=== PATIENT | female | born 1975 | race Two or more races ===

== ENCOUNTER → 2022-03-23 | Outpatient (CLI) | payer BC ==
[2022-03-23 07:55] LABS: Basophils # (auto) 0 10 ^3/uL (0-0.2); Basophils % (auto) 0.4 % (0.0-2.0); Eosinophils # (auto) 0.1 10 ^3/uL (0-0.8); Eosinophils % (auto) 0.9 % (0.0-7.0); Hematocrit 39.9 % (36.0-46.0); Hemoglobin 13.3 g/dL (12.2-16.2); Lymphocytes # (auto) 1.7 10 ^3/uL (0.4-5.4); Lymphocytes % (auto) 27.3 % (10.0-50.0); Mean Corpuscular Hemoglobin 27.3 pg (28.0-32.0); Mean Corpuscular Hgb Conc. 33.2 g/dL (32.0-36.0); Monocytes # (auto) 0.3 10 ^3/uL (0-1.3); Monocytes % (auto) 4.6 % (0.0-12.0); Neutrophils # (auto) 4.2 10 ^3/uL (1.6-8.6); Neutrophils % (auto) 66.8 % (37.0-80.0); Nucleated Red Blood Cells % 0.1 %; Red Blood Cells 4.87 10^6/uL (4.0-5.20); Red Cell Distribution Width 13.2 % (11.8-14.3); White Blood Cell 6.3 10^3/uL (4.4-10.8)
[2022-03-23 08:25] LABS: Cholesterol 168 mg/dL (< 200); HDL Cholesterol 49 mg/dL (40-59); LDL Cholesterol 110 mg/dL (< 100); Triglycerides 126 mg/dL (< 150)
== END | disposition home or self-care (01) ==
LOC: LAB 07:19
PROVIDERS: ATTEND Student in an Organized Health Care Education/Training Program
DX: Z00.00 Encounter for general adult medical examination without abnormal findings (principal); R73.09 Other abnormal glucose; I10 Essential (primary) hypertension; Z86.39 Personal history of other endocrine, nutritional and metabolic disease
CPT/HCPCS: 36415; 80061; 82274; 83036; 85025

== ENCOUNTER → 2022-07-09 | Outpatient (CLI) | payer BC ==
[2022-07-09 08:27] LABS: Albumin 3.5 g/dL (3.4-5.0); Calcium 8.2 mg/dL (8.5-10.1); Potassium 4.3 mmol/L (3.5-5.1)
[2022-07-09 08:31] LABS: BUN/Creatinine Ratio 14.3; Bilirubin, Total 0.2 mg/dL (0.2-1.0); Total Protein 7.4 g/dL (6.4-8.2)
== END | disposition home or self-care (01) ==
LOC: LAB 07:40
PROVIDERS: ATTEND Student in an Organized Health Care Education/Training Program
DX: I10 Essential (primary) hypertension (principal); E66.09 Other obesity due to excess calories
CPT/HCPCS: 36415; 80053; 83036

== ENCOUNTER → 2023-02-04 | Outpatient (CLI) | payer BC ==
[2023-02-04 10:59] LABS: Basophils # (auto) 0 10 ^3/uL (0-0.2); Eosinophils # (auto) 0.1 10 ^3/uL (0-0.8); Hemoglobin 11.6 g/dL (12.2-16.2); Lymphocytes # (auto) 1.9 10 ^3/uL (0.4-5.4); Lymphocytes % (auto) 26.4 % (10.0-50.0); Monocytes # (auto) 0.4 10 ^3/uL (0-1.3)
[2023-02-04 11:02] LABS: Basophils % (auto) 0.6 % (0.0-2.0); Eosinophils % (auto) 1.1 % (0.0-7.0); Hematocrit 35.9 % (36.0-46.0); Mean Corpuscular Hemoglobin 24.1 pg (28.0-32.0); Mean Corpuscular Hgb Conc. 32.4 g/dL (32.0-36.0); Mean Corpuscular Volume 74.2 fL (80.0-100.0); Monocytes % (auto) 5.3 % (0.0-12.0); Neutrophils # (auto) 4.7 10 ^3/uL (1.6-8.6); Neutrophils % (auto) 66.6 % (37.0-80.0); Red Blood Cells 4.84 10^6/uL (4.0-5.20); Red Cell Distribution Width 14.8 % (11.8-14.3); White Blood Cell 7.1 10^3/uL (4.4-10.8)
[2023-02-04 11:33] LABS: % Iron Saturation 13.5 % (15-50); Alanine Aminotransferase 24 U/L (7-40); Albumin 4.1 g/dL (3.2-4.8); Alkaline Phosphatase 97 U/L (46-116); Anion Gap 6.5 (5-15); Aspartate Aminotransferase 16 U/L (13-40); BUN/Creatinine Ratio 10.1 (10.0-20.0); Bilirubin, Total 0.4 mg/dL (0.2-1.0); Blood Urea Nitrogen 8 mg/dL (9-23); Calcium 8.7 mg/dL (8.5-10.1); Carbon Dioxide 24.5 mmol/L (20-30); Chloride 105 mmol/L (98-107); Cholesterol 174 mg/dL (< 200); Glucose 96 mg/dL (74-106); HDL Cholesterol 44 mg/dL (40-59); Potassium 4.3 mmol/L (3.5-5.1); Sodium 136 mmol/L (136-145); Total Protein 7.3 g/dL (5.7-8.2); Triglycerides 203 mg/dL (< 150)
[2023-02-04 15:51] LABS: LDL Cholesterol 116 mg/dL (< 100)
[2023-02-04 21:09] LABS: Folate (Folic Acid) 16.72 ng/mL (>5.38)
== END | disposition home or self-care (01) ==
LOC: LAB 10:25
PROVIDERS: ATTEND Family Medicine
DX: Z00.00 Encounter for general adult medical examination without abnormal findings (principal); F32.A Depression, unspecified; Z68.32 Body mass index [BMI] 32.0-32.9, adult
CPT/HCPCS: 36415; 80053; 80061; 82607; 82746; 83036; 83540; 83550; 84403; 84443; 84550; 85025

== ENCOUNTER → 2024-01-26 | Outpatient (CLI) | payer BC ==
[2024-01-26 07:15] LABS: Urine Bacteria None Seen /hpf (None Seen)
[2024-01-26 07:20] LABS: Basophils # (auto) 0 10 ^3/uL (0-0.2); Basophils % (auto) 0.6 % (0.0-2.0); Eosinophils # (auto) 0.1 10 ^3/uL (0-0.8); Eosinophils % (auto) 1.4 % (0.0-7.0); Hematocrit 40.4 % (36.0-46.0); Hemoglobin 13.5 g/dL (12.2-16.2); Lymphocytes # (auto) 1.7 10 ^3/uL (0.4-5.4); Lymphocytes % (auto) 29.1 % (10.0-50.0); Mean Corpuscular Hemoglobin 25.8 pg (28.0-32.0); Mean Corpuscular Hgb Conc. 33.3 g/dL (32.0-36.0); Mean Corpuscular Volume 77.5 fL (80.0-100.0); Monocytes # (auto) 0.3 10 ^3/uL (0-1.3); Monocytes % (auto) 5.3 % (0.0-12.0); Neutrophils # (auto) 3.7 10 ^3/uL (1.6-8.6); Neutrophils % (auto) 63.6 % (37.0-80.0); Nucleated Red Blood Cells % 0.1 %; Platelet Count (auto) 412 10^3/uL (140-450); Red Blood Cells 5.21 10^6/uL (4.0-5.20); Red Cell Distribution Width 14.5 % (11.8-14.3); White Blood Cell 5.8 10^3/uL (4.4-10.8)
[2024-01-26 07:36] LABS: Urine Blood 1+ /uL (Negative); Urine Clarity Clear (Clear); Urine Color Light-Yellow (Yellow); Urine Mucus FEW (None Seen); Urine Protein, UAD Negative (Negative); Urine Specific Gravity 1.019 (1.001-1.035); Urine Urobilinogen Normal (Negative); Urine WBC <1 /hpf (0 - 5); Urine pH 6.5 (5.0-9.0)
[2024-01-26 07:48] LABS: Alanine Aminotransferase 11 U/L (7-40); Albumin 4.3 g/dL (3.2-4.8); Alkaline Phosphatase 104 U/L (46-116); Anion Gap 4 (5-15); Aspartate Aminotransferase 15 U/L (13-40); BUN/Creatinine Ratio 15.2 (10.0-20.0); Blood Urea Nitrogen 14 mg/dL (9-23); Carbon Dioxide 25 mmol/L (20-30); Chloride 108 mmol/L (98-107); Cholesterol 161 mg/dL (< 200); Glucose 93 mg/dL (74-106); HDL Cholesterol 38 mg/dL (40-59); LDL Cholesterol 103 mg/dL (< 100); Magnesium 2.2 mg/dL (1.6-2.6); Potassium 3.8 mmol/L (3.5-5.1); Sodium 137 mmol/L (136-145); Triglycerides 141 mg/dL (< 150)
[2024-01-26 07:49] LABS: Bilirubin, Total 0.4 mg/dL (0.2-1.0); Total Protein 7.6 g/dL (5.7-8.2)
[2024-01-26 07:51] LABS: Thyroid Stimulating Hormone 2.34 uIU/mL (0.55-4.78)
[2024-01-26 10:21] LABS: Uric Acid 6.3 mg/dL (3.1-7.8)
[2024-01-26 10:42] LABS: T3 Total 1.13 ng/mL (0.60-1.81)
[2024-01-26 10:43] LABS: Free T3 3.03 pg/mL (2.3-4.2)
[2024-01-26 10:47] LABS: Free T4 (Free Thyroxine) 1.28 ng/dL (0.89-1.76)
== END | disposition home or self-care (01) ==
LOC: LAB 07:04
PROVIDERS: ATTEND Family Medicine
DX: E78.1 Pure hyperglyceridemia (principal)
CPT/HCPCS: 36415; 80053; 80061; 81001; 82306; 82607; 83036; 83615; 83735; 84439; 84443; 84480; 84481; 84550; 85025; 87086